=== PATIENT | male | born 2000 | race Caucasian/White ===

== ENCOUNTER 2019-02-25 22:37 | Emergency (ER) | payer MEDICAID ==
[~2019-02-25] VITALS: Ht 170.2 cm; Wt 59.0 kg
[2019-02-26] MEDS ORDERED: LORAZEPAM 0.5MG TABLET PO ONE (06:30)
[2019-02-26 12:20] VITALS: BP 115/70
== END 2019-02-26 12:23 | disposition home or self-care (01) ==
LOC: ER 22:37
DX: R07.9 Chest pain, unspecified (principal); F32.9 Major depressive disorder, single episode, unspecified; F41.9 Anxiety disorder, unspecified
CPT/HCPCS: 71045; 93005; 99284